=== PATIENT | female | born 1985 | race Caucasian/White ===

== ENCOUNTER 2017-12-27 10:05 | Emergency (ER) | payer OTHER ==
--- NOTE | 2017-12-27 12:56 | EDPHYS ---
Physician Documentation [facility] Name: Sydnie Villalta Age: 32 yrs Sex: Female : 1985 Arrival Date: 12/27/2017 Time: 10:10 Bed 23 Private MD: Flaco Castano E ED Physician Guicho Silva HPI: 12/27 17:05 This 32 yrs old Female presents to ER via Ambulatory with complaints of Fall kdr Injury. 17:05 Details of fall: The patient fell from an upright position, while standing. Onset: The kdr symptoms/episode began/occurred suddenly, yesterday. Associated injuries: The patient sustained injury to the head, injury to the low back, contusion. Severity of symptoms: At their worst the symptoms were mild, in the emergency department the symptoms are unchanged. The patient has not experienced similar symptoms in the past. The patient has not recently seen a physician. Tripped on drawer at work yesterday and now has pain to back of head and left low thorax and back. 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 - Social history:: Smoking status: Patient uses tobacco products, smokes one-half pack cigarettes per day. - Ebola Screening: : No symptoms or risks identified at this time. ROS: 18:23 Constitutional: Negative for fever, chills, and weight loss, Eyes: Negative for injury, kdr pain, redness, and discharge, ENT: Negative for injury, pain, and discharge, Neck: Negative for injury, pain, and swelling, Cardiovascular: Negative for anterior chest pain, palpitations, and edema - she does have some right lateral thorax pain Respiratory: Negative for shortness of breath, cough, wheezing, and pleuritic chest pain, Abdomen/GI: Negative for abdominal pain, nausea, vomiting, diarrhea, and constipation, Back: Negative for injury and pain, : Negative for injury, bleeding, discharge, and swelling, MS/Extremity: Negative for injury and deformity, Skin: Negative for injury, rash, and discoloration, Neuro: Negative for headache, weakness, numbness, tingling, and seizure activity - slight posterior head pain from fall Psych: Negative for depression, anxiety, suicide ideation, homicidal ideation, and hallucinations, Allergy/Immunology: Negative for hives, rash, and allergies, Endocrine: Negative for neck swelling, polydipsia, polyuria, polyphagia, and marked weight changes, Hematologic/Lymphatic: Negative for swollen nodes, abnormal bleeding, and unusual bruising. Exam: 18:23 Constitutional: This is a well developed, well nourished patient who is awake, alert, kdr and in no acute distress. Head/Face: Normocephalic, atraumatic. Eyes: Pupils equal round and reactive to light, extra-ocular motions intact. Lids and lashes normal. Conjunctiva and sclera are non-icteric and not injected. Cornea within normal limits. Periorbital areas with no swelling, redness, or edema. Neck: Trachea midline, no thyromegaly or masses palpated, and no cervical lymphadenopathy. Supple, full range of motion without nuchal rigidity, or vertebral point tenderness. No Meningismus. Chest/axilla: Normal chest wall appearance and motion. Nontender with no deformity. No lesions are appreciated. Cardiovascular: Regular rate and rhythm with a normal S1 and S2. No gallops, murmurs, or rubs. Normal PMI, no JVD. No pulse deficits. Respiratory: Lungs have equal breath sounds bilaterally, clear to auscultation and percussion. No rales, rhonchi or wheezes noted. No increased work of breathing, no retractions or nasal flaring. Abdomen/GI: Soft, non-tender, with normal bowel sounds. No distension or tympany. No guarding or rebound. No evidence of tenderness throughout. Back: No spinal tenderness. No costovertebral tenderness. Full range of motion. Skin: Warm, dry with normal turgor. Normal color with no rashes, no lesions, and no evidence of cellulitis. MS/ Extremity: Pulses equal, no cyanosis. Neurovascular intact. Full, normal range of motion. Neuro: Awake and alert, GCS 15, oriented to person, place, time, and situation. Cranial nerves II-XII grossly intact. Motor strength 5/5 in all extremities. Sensory grossly intact. Cerebellar exam normal. Normal gait. Psych: Awake, alert, with orientation to person, place and time. Behavior, mood, and affect are within normal limits. Vital Signs: 10:38 BP 129 / 90; Pulse 91; Resp 16; Temp 97.4; Pulse Ox 97% on R/A; Weight 87.54 kg; Height aj 5 ft. 1 in. (154.94 cm); Pain 5/10; 10:38 Body Mass Index 36.47 (87.54 kg, 154.94 cm) aj [place] Coma Score: 10:38 Eye Response: spontaneous(4). Verbal Response: oriented(5). Motor Response: obeys aj commands(6). Total: 15. Trauma Score (Adult): 10:38 Eye Response: spontaneous(1); Verbal Response: oriented(1); Motor Response: obeys aj commands(2); Systolic BP: > 89 mm Hg(4); Respiratory Rate: 10 to 29 per min(4); [place] Score: 15; Trauma Score: 12 MDM: 12:55 Patient medically screened. kdr 18:23 Data reviewed: vital signs, nurses notes. Counseling: I had a detailed discussion with kdr the patient and/or guardian regarding: the historical points, exam findings, and any diagnostic results supporting the discharge/admit diagnosis, the need for outpatient follow up. Administered Medications: No medications were administered Disposition: 12/27/17 12:55 Discharged to Home. Impression: Other slipping, tripping and stumbling and falls, Superficial injury of head, Chest pain, unspecified. - Condition is Stable. - Discharge Instructions: Chest Contusion, Chest Wall Pain, [id number], Head Injury, Adult, [id number]. - Prescriptions for Ibuprofen 800 mg Oral Tablet - take 1 tablet by ORAL route every 8-12 hours As needed take with food; 20 tablet. - Medication Reconciliation Form, Thank You Letter form. - Work release form (12/27/17 13:16). bd - Follow up: Flaco Castano MD; When: 2 - 3 days; Reason: If symptoms return, Further diagnostic work-up, Recheck today's complaints, Continuance of care, Re-evaluation by your physician. - Problem is new. - Symptoms are unchanged. Signatures: Jany Díaz, RN RN dmAlicia Montalvo RN RN Guicho Santos MD MD kdr Calderon, Audri, RN RN aa5 Imani Renee Corrections: (The following items were deleted from the chart) 13:00 12:55 12/27/2017 12:55 Discharged to Home. Impression: Other slipping, tripping and dm5 stumbling and falls; Superficial injury of head; Chest pain, unspecified. Condition is Stable. Forms are Medication Reconciliation Form, Thank You Letter, Antibiotic Education, Prescription Opioid Use. Follow up: Flaco Castano; When: 2 - 3 days; Reason: If symptoms return, Further diagnostic work-up, Recheck today's complaints, Continuance of care, Re-evaluation by your physician. Problem is new. Symptoms are unchanged. kdr
--- NOTE | 2017-12-27 12:56 | ER ---
Nurse's Notes [facility] Name: Sydnie Villalta Age: 32 yrs Sex: Female : 1985 Arrival Date: 12/27/2017 Time: 10:10 Bed 23 Private MD: Flaco Castano E Diagnosis: Other slipping, tripping and stumbling and falls;Superficial injury of head;Chest pain, unspecified Presentation: 12/27 10:38 Presenting complaint: Patient states: Tripped over drawer at work yesterday. Reports aj falling onto right side. Hitting right arm and right head on floor. Patient reports headache. Denies LOC. Care prior to arrival: None. Mechanism of Injury: Fall from standing position. Trauma event details: Injury occurred in the [facility], Injury occurred: in a public building. Injury occurred: December 26, 2017. 10:38 Acuity: SUZY 4 aj 10:38 Method Of Arrival: Ambulatory aj 12:00 Transition of care: patient was not received from another setting of care. Onset of aa5 symptoms was December 26, 2017. Risk Assessment: Do you want to hurt yourself or someone else? Patient reports no desire to harm self or others. Initial Sepsis Screen: Does the patient meet any 2 criteria? No. Patient's initial sepsis screen is negative. Does the patient have a suspected source of infection? No. Patient's initial sepsis screen is negative. 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 - Social history:: Smoking status: Patient uses tobacco products, smokes one-half pack cigarettes per day. - Ebola Screening: : No symptoms or risks identified at this time. Screenin:00 Abuse screen: Denies threats or abuse. Nutritional screening: No deficits noted. aa5 Tuberculosis screening: No symptoms or risk factors identified. Fall Risk None identified. Primary Survey: 10:38 A: Airway: patent. Breathing/Chest: Respiratory pattern: regular, Respiratory effort: aj spontaneous, unlabored. Circulation: Skin color: pink. Disability Alert. Assessment: 10:38 General: Appears in no apparent distress. comfortable, Behavior is calm, cooperative, aj appropriate for age. Pain: Complains of pain in face. Neuro: Level of Consciousness is awake, alert, obeys commands, Oriented to person, place, time, situation, Appropriate for age Gait is steady, Reports headache. Respiratory: Airway is patent Respiratory effort is even, unlabored, Respiratory pattern is regular, symmetrical. Derm: Skin is intact, is healthy with good turgor, Skin is pink, warm \T\ dry. normal. Musculoskeletal: Reports pain in right temporal area, right confucianist and right arm. 12:00 General: Appears comfortable, Behavior is calm, cooperative. Pain: Complains of pain in aa5 right confucianist and right hip Pain currently is 5 out of 10 on a pain scale. Quality of pain is described as aching, sore Is continuous, Aggravated by increased activity. Neuro: Level of Consciousness is awake, alert, obeys commands, Oriented to person, place, time, situation, Business Process Analyst are equal bilaterally Moves all extremities. Gait is steady, Speech is normal, Facial symmetry appears normal, Pupils are PERRLA, Denies weakness dizziness. Cardiovascular: Heart tones S1 S2 present Rhythm is regular. Respiratory: Airway is patent Respiratory effort is even, unlabored, Respiratory pattern is regular, symmetrical, Breath sounds are clear bilaterally. GI: No signs and/or symptoms were reported involving the gastrointestinal system. : No signs and/or symptoms were reported regarding the genitourinary system. EENT: No signs and/or symptoms were reported regarding the EENT system. Derm: Skin is pink, warm \T\ dry. Musculoskeletal: Range of motion: intact in all extremities. 12:59 Reassessment: Patient is alert, oriented x 3, equal unlabored respirations, skin aa5 warm/dry/pink. Vital Signs: 10:38 BP 129 / 90; Pulse 91; Resp 16; Temp 97.4; Pulse Ox 97% on R/A; Weight 87.54 kg; Height aj 5 ft. 1 in. (154.94 cm); Pain 5/10; 10:38 Body Mass Index 36.47 (87.54 kg, 154.94 cm) aj [place] Coma Score: 10:38 Eye Response: spontaneous(4). Verbal Response: oriented(5). Motor Response: obeys aj commands(6). Total: 15. Trauma Score (Adult): 10:38 Eye Response: spontaneous(1); Verbal Response: oriented(1); Motor Response: obeys aj commands(2); Systolic BP: > 89 mm Hg(4); Respiratory Rate: 10 to 29 per min(4); [place] Score: 15; Trauma Score: 12 ED Course: 10:10 Patient arrived in ED. mr 10:10 Flaco Castano MD is Private Physician. mr 10:18 Guicho Silva MD is Attending Physician. kdr 10:39 Triage completed. aj 10:42 Arm band placed on right wrist. Patient placed in waiting room, Patient notified of aj wait time. 11:49 Luisana Hampton, ESTEBAN is Primary Nurse. aa5 12:00 Patient has correct armband on for positive identification. Bed in low position. Call aa5 light in reach. Side rails up X2. 12:30 No provider procedures requiring assistance completed. aa5 12:54 Flaco Castano MD is Referral Physician. kdr 12:59 Patient did not have IV access during this emergency room visit. aa5 Administered Medications: No medications were administered Outcome: 12:55 Discharge ordered by MD. kdr 12:59 Discharged to home ambulatory. aa5 12:59 Condition: good 12:59 Discharge instructions given to patient, Instructed on discharge instructions, follow up and referral plans. medication usage, Demonstrated understanding of instructions, follow-up care, medications, Prescriptions given X 1. 13:00 Patient left the ED. dm5 Signatures: Jany Díaz RN RN dm5 Alicia Smith RN RN aj Rittger, Kevin, MD MD kdr Rivera, Maria mr Luisana Hampton RN RN aa5 Corrections: (The following items were deleted from the chart) 12:56 12:00 Pain: Complains of pain in right confucianist and right hip Quality of pain is aa5 described as aching, sore Is continuous, Aggravated by increased activity, aa5
[2017-12-27 13:13] VITALS: BP 129/90; TEMP 97.4; O2SAT 97
== END 2017-12-27 13:00 | disposition home or self-care (01) ==
LOC: ER 10:05
DX: S00.90XA Unspecified superficial injury of unspecified part of head, initial encounter (principal); R07.9 Chest pain, unspecified; F32.9 Major depressive disorder, single episode, unspecified; W01.0XXA Fall on same level from slipping, tripping and stumbling without subsequent striking against object, initial encounter; Y93.89 Activity, other specified; Y92.89 Other specified places as the place of occurrence of the external cause; Y99.0 Civilian activity done for income or pay
CPT/HCPCS: 99282

== ENCOUNTER 2020-10-30 02:07 | Emergency (ER) | payer OTHER, SELFPAY ==
--- OUTSIDE RECORDS SUMMARY | 2020-10-30 02:11 | XMS REPORT | Continuity of Care Document ---
:1985 Author Organization [facility] t Address [address] [place] [address] Care Team Providers Name Role Phone Yahir Castano MD Primary Care Physician MICHELLE Attending Clinician Unavailable Lab, Fam Pob I Attending Clinician Unavailable LIANA Attending Clinician Unavailable KALPANA FLOWER Attending Clinician Unavailable KALPANA FLOWER Admitting Clinician Unavailable Problems Condition Condition Condition Status Onset Resolution Last Treating Co mments Source Name Details Category Date Date Treatment Clinician Date Bladder Bladder Disease [facility] 00 [place] Bladder Bladder Disease Active [facility] Allergies, Adverse Reactions, Alerts Allergy Allergy Status Severity Reaction(s) Onset Inactive Treating Comm ents Source Name Type Date Date Clinician Aspirin Propensi Active Dizziness [facility] adverse [facility]: reports Medical reaction 00 that she Center s has taken Ibuprofen and naproxen in the past without any issues. Clams Drug [facility]axis [facility] [place] Latex Drug [facility]aphylaxis [facility] [place] Social History Social Habit Start Date Stop Date Quantity Comments Source Sex Assigned At [facility] Alcohol intake 2018-02-13 2018-02-13 [facility]00 of alcohol [facility] (finding) Cigarettes smoked 2018-02-13 2018-02-[address] [facility] - current (pack per 00:00:00 00:00:00 [facility] day) - Reported Cigarette 2018-02-13 2018-02-[address] [facility] - pack-years 00:00:00 00:00:00 [facility] Tobacco use and 2018-02-13 2018-02-[address] [facility] - exposure 00:00:00 00:00:00 [facility] Alcohol Comment 2018-02-12 2018-02-[address] [facility] - 00:00:00 00:00:00 [facility] Smoking Status Start Date Stop Date Source Current every day smoker 2018-02-13 00:00:00 [facility] Medications Ordered Filled Start Stop Current Ordering Indication Dosage Frequency Signature Comments Components Source Medication Medication Date Date Medication? Clinician (SIG) Name Name venlafaxine 2018- Yes 150mg Q.5D Take [address] (EFFEXOR) 7-13 mg by [facility] - 75 MG 11:39: mouth 2 Medical tablet 08 (two) Center times daily. brexpiprazo 2017- Yes 2mg QD Take [address] le 7-13 by mouth [facility] - (REXULTI) 1 11:39: daily. Medi yolanda mg Tab 08 Center tablet traMADol Yes 50mg Take [address] (ULTRAM) 50 7-13 by mouth [facility] - mg tablet 11:39: every 6 Medic al 08 (six) Center hours as needed for Pain. ciprofloxac 2018-0 Yes 500mg Q.5D Take [address] in HCl 7-13 mg by [facility] - (CIPRO) 500 11:39: mouth 2 Med ical MG tablet 08 (two) Center times daily. oxybutynin 2018-0 Yes 5mg [id number] Take [address] (DITROPAN) 7-13 [id number] by mouth 3 [facility] - 5 MG tablet 11:39: 3D (three) Med ical 08 times Center daily. Procedures This patient has no known procedures. Plan of Care Planned Activity Planned Date Details Comments Source Future Scheduled 2020-04-06 INFLUENZA VACCINE (#1) [facility] Test 00:00:00 [code = INFLUENZA Medical Ce nter VACCINE (#1)] Future Scheduled [address] [facility] [facility] - Test 00:00:00 malignant neoplasm of Medica l Center cervix (procedure) [code = 927362249] Future Scheduled [address] [facility] - Test 00:00:00 (procedure) [code = Medical Center [id number]] Future Scheduled [address] [facility] - Test 00:00:00 0-64 YRS (1 of 1 - Medical C enter PPSV23) [code = PNEUMOCOCCAL VACCINE 0-64 YRS (1 of 1 - PPSV23)] Encounters Start End Encounter Admission Attending Care Care Encounter Source Date/Time Date/Time Type Type Clinicians Facility Department ID 2020-07-20 2020-07-20 Outpatient MICHELLE [facility] [id number] [place] 00:00:00 00:00:00 [facility] [address] 2020-04-17 2020-04-17 Laboratory Lab, [facility] [id number] 18:13:57 18:27:15 Only Fam [facility] Health [id number] [place] [id number] Professio [id number] [address]al [address] 2020-03-24 2020-03-24 Outpatient LIANA [facility] [id number] [place] 00:00:00 00:00:00 EFRAIN [address] 2019-12-23 2019-12-23 Outpatient MICHELLE [facility] [id number] [place] 00:00:00 00:00:[address] [facility] Results Test Description Test Time Test Comments Results Result Sourc e Comments SCR MAMM BILATERAL 2019-01-17 - SCR MAMM BILATERAL VINCE CAD DIGITAL 12:55:25 VINCE CAD DIGITALBILATERAL FIRST EVER DIGITAL SCREENING MAMMOGRAM 3D/2D WITH CAD: 01/14/2019CLINICAL: Asymptomatic. Digital breast tomosynthesis was performed in addition to routine CC and MLO views. Current mammographic images were evaluated by either a Infinite.ly M-Vu or a Acousticeye ImageChecker CAD (computer aided detection system). No prior exams were available for comparison. There are scattered fibroglandular tissues in both breasts. No suspicious mass, architectural distortion, malignant type calcification, or lymph node abnormality detected. IMPRESSION: NEGATIVEThere is no mammographic evidence of malignancy. Resume annual screening mammography in one year. Vivian sosa/annemarie:01/17/2019 12:55:25 Fur Dressing Supervisor: Ana Saunders MM, [facility] Mammographyletter sent: BIRADS 1-2 Normal Mammogram BI-RADS: 1 Negative BASIC METABOLIC PANEL 2018-02-15 09:00:00 Test Item Value Reference Range Interpretation Comme nts SODIUM (BEAKER) (test code 136 meq/L 136-145 = 381) POTASSIUM (BEAKER) (test 4.5 meq/L 3.5-5.1 Spe cimen slightly code = 379) hemolyzed CHLORIDE (BEAKER) (test 109 meq/L 98-107 H code = 382) CO2 (BEAKER) (test code = 19 meq/L 22-29 L 355) BLOOD UREA NITROGEN 6 mg/dL 7-21 L (BEAKER) (test code = 354) CREATININE (BEAKER) (test 0.77 mg/dL 0.57-1.25 Sp ecimen slightly code = 358) hemolyzed GLUCOSE RANDOM (BEAKER) 104 mg/dL 70-105 (test code = 652) CALCIUM (BEAKER) (test code 8.9 mg/dL 8.4-10.2 = 697) EGFR (BEAKER) (test code = 86 mL/min/1.73 sq m ESTIMATED GFR IS NOT 1092) ACCURATE CRE ATININE CLEARANCE IN MD EDICTING GLOMERULAR FILT RATION RATE. ESTIMATED GFR IS NOT APPLICABLE FOR DIALYSIS PATIENTS. CBC W/PLT COUNT & AUTO [id number] 08:14:00 Test Item Value Reference Range Interpretation Comments WHITE BLOOD CELL COUNT (BEAKER) 10.8 K/ L 3.5-10.5 H (test code = 775) RED BLOOD CELL COUNT (BEAKER) 3.74 M/ L 3.93-5.22 L (test code = 761) HEMOGLOBIN (BEAKER) (test code = 11.2 GM/DL 11.2-15.7 410) HEMATOCRIT (BEAKER) (test code = 34.0 % 34.1-44.9 L 411) MEAN CORPUSCULAR VOLUME (BEAKER) 90.9 fL 79.4-94.8 (test code = 753) MEAN CORPUSCULAR HEMOGLOBIN 29.9 pg 25.6-32.2 (BEAKER) (test code = 751) MEAN CORPUSCULAR HEMOGLOBIN CONC 32.9 GM/DL 32.2-35.5 (BEAKER) (test code = 752) RED CELL DISTRIBUTION WIDTH 14.8 % 11.7-14.4 H (BEAKER) (test code = 412) PLATELET COUNT (BEAKER) (test 213 K/CU MM 150-450 code = 756) MEAN PLATELET VOLUME (BEAKER) 11.0 fL 9.4-12.3 (test code = 754) NUCLEATED RED BLOOD CELLS 0 /100 WBC 0-0 (BEAKER) (test code = 413) NEUTROPHILS RELATIVE PERCENT 59 % (BEAKER) (test code = 429) LYMPHOCYTES RELATIVE PERCENT 27 % (BEAKER) (test code = 430) MONOCYTES RELATIVE PERCENT 9 % (BEAKER) (test code = 431) EOSINOPHILS RELATIVE PERCENT 4 % (BEAKER) (test code = 432) BASOPHILS RELATIVE PERCENT 1 % (BEAKER) (test code = 437) NEUTROPHILS ABSOLUTE COUNT 6.42 K/ L 1.56-6.13 H (BEAKER) (test code = 670) LYMPHOCYTES ABSOLUTE COUNT 2.88 K/ L 1.18-3.74 (BEAKER) (test code = 414) MONOCYTES ABSOLUTE COUNT (BEAKER) 1.00 K/ L 0.24-0.36 H (test code = 415) EOSINOPHILS ABSOLUTE COUNT 0.40 K/ L 0.04-0.36 H (BEAKER) (test code = 416) BASOPHILS ABSOLUTE COUNT (BEAKER) 0.07 K/ L 0.01-0.08 (test code = 417) IMMATURE GRANULOCYTES-RELATIVE 0 % 0-1 PERCENT (BEAKER) (test code = 2801) CBC W/PLT COUNT & AUTO [id number] 08:10:00 Test Item Value Reference Range Interpretation Comments WHITE BLOOD CELL COUNT (BEAKER) 17.1 K/ L 3.5-10.5 H (test code = 775) RED BLOOD CELL COUNT (BEAKER) 4.06 M/ L 3.93-5.22 (test code = 761) HEMOGLOBIN (BEAKER) (test code = 12.0 GM/DL 11.2-15.7 410) HEMATOCRIT (BEAKER) (test code = 38.2 % 34.1-44.9 411) MEAN CORPUSCULAR VOLUME (BEAKER) 94.1 fL 79.4-94.8 (test code = 753) MEAN CORPUSCULAR HEMOGLOBIN 29.6 pg 25.6-32.2 (BEAKER) (test code = 751) MEAN CORPUSCULAR HEMOGLOBIN CONC 31.4 GM/DL 32.2-35.5 L (BEAKER) (test code = 752) RED CELL DISTRIBUTION WIDTH 14.7 % 11.7-14.4 H (BEAKER) (test code = 412) PLATELET COUNT (BEAKER) (test 219 K/CU MM 150-450 code = 756) MEAN PLATELET VOLUME (BEAKER) 11.8 fL 9.4-12.3 (test code = 754) NUCLEATED RED BLOOD CELLS 0 /100 WBC 0-0 (BEAKER) (test code = 413) (CELLAVISION MANUAL DIFF)2018-02-14 08:10:00 Test Item Value Reference Range Interpretation Comments NEUTROPHILS - REL 79 % (CELLAVISION)(BEAKER) (test code = 2816) LYMPHOCYTES - REL 13 % (CELLAVISION)(BEAKER) (test code = 2817) MONOCYTES - REL 6 % (CELLAVISION)(BEAKER) (test code = 2818) EOSINOPHILS - REL 1 % (CELLAVISION)(BEAKER) (test code = 2819) BASOPHILS - REL 1 % (CELLAVISION)(BEAKER) (test code = 2820) NEUTROPHILS - ABS 13.51 K/ul 1.56-6.13 H (CELLAVISION)(BEAKER) (test code = 2830) LYMPHOCYTES - ABS 2.22 K/ul 1.18-3.74 (CELLAVISION)(BEAKER) (test code = 2831) MONOCYTES - ABS 1.03 K/uL 0.24-0.36 H (CELLAVISION)(BEAKER) (test code = 2832) EOSINOPHILS - ABS 0.17 K/uL 0.04-0.36 (CELLAVISION)(BEAKER) (test code = 2834) BASOPHILS - ABS 0.17 K/uL 0.01-0.08 H (CELLAVISION)(BEAKER) (test code = 2835) TOTAL COUNTED (BEAKER) (test code 100 = 1351) RBC MORPHOLOGY (BEAKER) (test code Normal = 762) WBC MORPHOLOGY (BEAKER) (test code Normal = 487) PLT MORPHOLOGY (BEAKER) (test code Normal = 486) ARTIFACT (CELLAVISION)(BEAKER) Present (test code = 3432) PLATELET CONCENTRATION Adequate (CELLAVISION)(BEAKER) (test code = 3438) Received comment: User comments: Slide comments:BASIC METABOLIC [id number] 07:24:00 Test Item Value Reference Range Interpretation Comments SODIUM (BEAKER) 134 meq/L 136-145 L (test code = 381) POTASSIUM (BEAKER) 4.1 meq/L 3.5-5.1 Specimen slightly (test code = 379) hemolyzed CHLORIDE (BEAKER) 109 meq/L 98-107 H (test code = 382) CO2 (BEAKER) (test 18 meq/L 22-29 L code = 355) BLOOD UREA NITROGEN 4 mg/dL 7-21 L (BEAKER) (test code = 354) CREATININE (BEAKER) 0.73 mg/dL 0.57-1.25 Specimen slightly (test code = 358) hemolyzed GLUCOSE RANDOM 122 mg/dL 70-105 H (BEAKER) (test code = 652) CALCIUM (BEAKER) 8.9 mg/dL 8.4-10.2 (test code = 697) EGFR (BEAKER) (test 91 mL/min/1.73 ESTIMA PETRA GFR IS code = 1092) sq m NOT ACCURATE CREATININE CLEARANCE IN PREDICTING GLOMERULAR FILTRATION RATE . ESTIMATED GFR I S NOT APPLICABLE FOR DIALYSIS PATIEN TS. SCREEN, [id number] 16:42:00 Test Item Value Reference Range Interpretation Comments TEST URINE (BEAKER) (test Negative code = 583) [id number] 15:36:00 Test Item Value Reference Range Interpretation Comments SODIUM (BEAKER) (test 137 meq/L 136-145 code = 381) POTASSIUM (BEAKER) 4.4 meq/L 3.5-5.1 Specimen slightly (test code = 379) hemolyzed CHLORIDE (BEAKER) 107 meq/L 98-107 (test code = 382) CO2 (BEAKER) (test 23 meq/L 22-29 code = 355) BUN AND [id number] 15:36:00 Test Item Value Reference Range Interpretation Comments BLOOD UREA NITROGEN 6 mg/dL 7-21 L (BEAKER) (test code = 354) CREATININE (BEAKER) 0.78 mg/dL 0.57-1.25 Specimen slightly (test code = 358) hemolyzed EGFR (BEAKER) (test 85 mL/min/1.73 ESTIMA PETRA GFR IS code = 1092) sq m NOT ACCURATE CREATININE CLEARANCE IN PREDICTING GLOMERULAR FILTRATION RATE . ESTIMATED GFR I S NOT APPLICABLE FOR DIALYSIS PATIEN TS. [id number] 15:13:00 Test Item Value Reference Range Interpretation Comments HEMOGLOBIN (BEAKER) (test code = 13.6 GM/DL 11.2-15.7 410)
[2020-10-30 02:59] LABS: Absolute Lymphocytes (CBC) 3.4 K/uL (0.7-4.9); Basophils % 0.2 % (0-1.3); Hematocrit 45.1 % (36.0-45.0); Lymphocytes % 32.7 % (15.3-44.8); MPV 9.8 fL (7.6-11.3); Protime INR 0.82; RBC Red Blood Cell Count 4.86 M/uL (3.86-4.86)
[2020-10-30 03:39] LABS: ALT/SGPT 30 U/L (12-78); AST/SGOT 18 U/L (15-37); Albumin 3.7 g/dL (3.4-5.0); Alkaline Phosphatase 73 U/L (45-117); BUN Blood Urea Nitrogen 6 mg/dL (7-18); Bicarbonate 23 mmol/L (21-32); Bilirubin Direct < 0.1 mg/dL (0-0.2); Bilirubin Total 0.5 mg/dL (0.2-1.0); Glucose Level 99 mg/dL (74-106); Magnesium 2.1 mg/dL (1.8-2.4); NT PRO-BNP 11 pg/mL (<125); Protein, Total 7.8 g/dL (6.4-8.2); Sodium Level 139 mmol/L (136-145); Troponin (Emerg Dept Use Only) < 0.02 ng/mL (0.0-0.045)
--- NOTE | 2020-10-30 03:47 | EDPHYS ---
Physician Documentation [facility] Name: Sydnie Villalta Age: 35 yrs Sex: Female : 1985 Arrival Date: 10/30/2020 Time: 02:10 Bed 8 Private MD: ED Physician Peri Chahal HPI: 10/30 02:37 This 35 yrs old Female presents to ER via Ambulatory with complaints of ma2 Weakness, Numbness Of Arm. 02:37 Onset: The symptoms/episode began/occurred gradually, 1 month(s) ago. Associated signs ma2 and symptoms: Pertinent negatives: dizziness, headache, neck stiffness, paresthesias, seizure, visual field changes, weakness. Severity of symptoms: At their worst the symptoms were very mild in the emergency department the symptoms have resolved. The patient has experienced similar episodes in the past. chest pain that is stapping on breathing, worse when she takes deep breath, no pain at this itme . 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 - Social history:: Smoking status: Patient reports the use of cigarette tobacco products, smokes one pack cigarettes per day. Patient/guardian denies using alcohol, street drugs, The patient lives with family. - Family history:: not pertinent. ROS: 02:37 Constitutional: Negative for fever, chills, and weight loss. ma2 02:37 All other systems are negative. Exam: 02:37 Constitutional: This is a well developed, well nourished patient who is awake, alert, ma2 and in no acute distress. Chest/axilla: Normal chest wall appearance and motion. Nontender with no deformity. No lesions are appreciated. Cardiovascular: Regular rate and rhythm with a normal S1 and S2. No gallops, murmurs, or rubs. Normal PMI, no JVD. No pulse deficits. Respiratory: Lungs have equal breath sounds bilaterally, clear to auscultation and percussion. No rales, rhonchi or wheezes noted. No increased work of breathing, no retractions or nasal flaring. Abdomen/GI: Soft, non-tender, with normal bowel sounds. No distension or tympany. No guarding or rebound. No evidence of tenderness throughout. Back: No spinal tenderness. No costovertebral tenderness. Full range of motion. Skin: Warm, dry with normal turgor. Normal color with no rashes, no lesions, and no evidence of cellulitis. MS/ Extremity: Pulses equal, no cyanosis. Neurovascular intact. Full, normal range of motion. Neuro: Awake and alert, GCS 15, oriented to person, place, time, and situation. Cranial nerves II-XII grossly intact. Motor strength 5/5 in all extremities. Sensory grossly intact. Cerebellar exam normal. Normal gait. 03:46 Respiratory: chest pain is reproducible on exam . [facility] Vital Signs: 02:21 BP 133 / 87; Pulse 88; Resp 15; Temp 98.9; Pulse Ox 100% ; Weight 87.45 kg; Pain 3/10; rv 03:00 BP 121 / 76; Pulse 86; Resp 16; Pulse Ox 100% on R/A; rv 03:58 BP 116 / 79; Pulse 84; Resp 17; Pulse Ox 99% on R/A; rv NIH Stroke Scale Scores: 02:30 NIHSS Score: 0 rv MDM: 02:19 Patient medically screened. nc2 02:37 Data reviewed: vital signs, nurses notes. [facility] 03:46 Counseling: I had a detailed discussion with the patient and/or guardian regarding: the [facility] historical points, exam findings, and any diagnostic results supporting the discharge/admit diagnosis, the presence of at least one elevated blood pressure reading (>120/80) during this emergency department visit. Response to treatment: the patient's symptoms have markedly improved after treatment. 10/30 02:32 Order name: Basic Metabolic Panel [facility] 10/30 02:32 Order name: CBC with Diff; Complete Time: 03:07 [facility] 10/30 02:32 Order name: LFT's [facility] 10/30 02:32 Order name: Magnesium; Complete Time: 03:47 [facility] 10/30 02:32 Order name: NT PRO-BNP; Complete Time: 03:47 [facility] 10/30 02:32 Order name: PT-INR; Complete Time: 03:07 [facility] 10/30 02:32 Order name: Troponin (emerg Dept Use Only); Complete Time: 03:47 ma2 10/30 02:32 Order name: XRAY Chest (1 view) ma2 10/30 02:32 Order name: EKG; Complete Time: 02:33 ma2 10/30 02:32 Order name: Cardiac monitoring; Complete Time: 02:33 ma2 10/30 02:32 Order name: EKG - Nurse/Tech; Complete Time: 02:33 ma2 10/30 02:32 Order name: Basic Metabolic Panel; Complete Time: 03:47 EDMS 10/30 02:33 Order name: Liver (Hepatic) Function; Complete Time: 03:47 EDMS 10/30 02:44 Order name: Glucose, Ancillary Testing; Complete Time: 03:07 EDMS 10/30 02:32 Order name: IV Saline Lock; Complete Time: 02:33 ma2 10/30 02:32 Order name: Labs collected and sent; Complete Time: 02:33 ma2 10/30 02:32 Order name: O2 Per Protocol; Complete Time: 02:33 ma2 10/30 02:32 Order name: O2 Sat Monitoring; Complete Time: 02:33 ma2 Administered Medications: No medications were administered Disposition: 10/30/20 03:46 Discharged to Home. Impression: Chest pain on breathing. - Condition is Stable. - Discharge Instructions: Chest Wall Pain. - Prescriptions for Diclofenac Sodium 75 mg Oral Tablet Sustained Release - take 1 tablet by ORAL route 2 times per day; 30 tablet. - Medication Reconciliation Form, Thank You Letter, Antibiotic Education, Prescription Opioid Use form. - Follow up: Private Physician; When: Tomorrow; Reason: Continuance of care. NIH Stroke Scale - NIH Stroke Score Date: 10/30/2020 Time: 02:30 Total Score = 0 1a. Level of Consciousness (LOC) - 0(Alert) 1b. Level of Consciousness (LOC) (Year \T\ Age) - 0(Both) 1c. LOC Commands (Open \T\ Closes Eyes/3D Modeler) - 0(Both) 2. Best Gaze (Lateral Gaze Paresis) - 0(Normal) 3. Visual Field Loss - 0(No visual loss) 4. Facial Palsy - 0(Normal) 5a. Left Arm: Motor (10-second hold) - 0(No drift) 5b. Right Arm: Motor (10-second hold) - 0(No drift) 6a. Left Leg: Motor (5-second hold - always test supine) - 0(No drift) 6b. Right Leg: Motor (5-second hold - always test supine) - 0(No drift) 7. Limb Ataxia (finger/nose \T\ heel/[place] - test with eyes open) - 0(Absent) 8. Sensory Loss (pinprick arms/legs/face) - 0(Normal) 9. Best Language: Aphasia (description/naming/reading) - 0(No aphasia) 10. Dysarthria (speech clarity - read or repeat words) - 0(Normal) 11. Extinction and Inattention (visual/tactile/auditory/spatial/personal) - 0(No abnormality) Initials: rv Signatures: Dispatcher [employer] EDMS Peri Chahal MD MD ma2 Andrea Blanc RN RN rv Corrections: (The following items were deleted from the chart) 03:58 03:46 10/30/2020 03:46 Discharged to Home. Impression: Chest pain on breathing. rv Condition is Stable. Prescriptions for Diclofenac Sodium 75 mg Oral Tablet Sustained Release - take 1 tablet by ORAL route 2 times per day; 30 tablet. and Forms are Medication Reconciliation Form, Thank You Letter, Antibiotic Education, Prescription Opioid Use. Follow up: Private Physician; When: Tomorrow; Reason: Continuance of care. ma2
--- NOTE | 2020-10-30 03:47 | ER ---
Nurse's Notes [facility] [place] Name: Sydnie Villalta Age: 35 yrs Sex: Female : 1985 Arrival Date: 10/30/2020 Time: 02:10 Bed 8 Private MD: Diagnosis: Chest pain on breathing Presentation: 10/30 02:21 Chief complaint: Patient states: NUMBNESS OF LEFT ARM FOR 3-4 DAYS, LEFT LEG STARTING rv ALLEN NUMB TODAY, COMPLAINING OF MILD CHEST PAIN 3/10, HEAVINESS, WITH MILD SOB. Coronavirus screen: Client denies travel out of the [place] in the last 14 days. Ebola Screen: No symptoms or risks identified at this time. No acute neurological deficit is noted. Pre-hospital glucose is not applicable to this patient. Initial Sepsis Screen: Does the patient meet any 2 criteria? No. Patient's initial sepsis screen is negative. Does the patient have a suspected source of infection? No. Patient's initial sepsis screen is negative. Risk Assessment: Do you want to hurt yourself or someone else? Patient reports no desire to harm self or others. Onset of symptoms was October 26, 2020. 02:21 Method Of Arrival: Ambulatory rv 02:21 Acuity: SUZY 3 rv Triage Assessment: : The onset of the patients symptoms was October 26, 2020 at 08:00. General: Appears rv comfortable, Behavior is calm, cooperative. Pain: Complains of pain in chest Pain currently is 3 out of 10 on a pain scale. Quality of pain is described as heavy, Pain began 1 day ago. EENT: No signs and/or symptoms were reported regarding the EENT system. Neuro: Level of Consciousness is awake, alert, obeys commands, Oriented to person, place, time, situation, Activity Assistant are equal bilaterally Moves all extremities. Full function Gait is steady, Speech is normal, Facial symmetry appears normal, Reports numbness in left arm and left leg. Cardiovascular: Patient's skin is warm and dry. Respiratory: Airway is patent Respiratory effort is even, unlabored. Derm: Skin is intact. SAUTE CHEF: : LMP 10/09/2020 rv Stroke Activation: Symptom onset > 6 hours Physician: Stroke Attending; Name: ; Notified At: ; Arrived At: Physician: Chief Stroke Resident; Name: ; Notified At: ; Arrived At: Physician: Stroke Resident; Name: ; Notified At: ; Arrived At: Physician: ED Attending; Name: ; Notified At: ; Arrived At: Physician: ED Resident; Name: ; Notified At: ; Arrived At: Historical: - Allergies: 02:27 Latex, Natural Rubber; rv 02:27 Aspirin; rv - PMHx: 02:27 Depression; Anxiety; rv - PSHx: 02:27 Appendectomy; rv - Immunization history:: Adult Immunizations not up to date. - Social history:: Smoking status: Patient reports the use of cigarette tobacco products, smokes one pack cigarettes per day. Patient/guardian denies using alcohol, street drugs, The patient lives with family. - Family history:: not pertinent. Screenin:30 Abuse screen: Denies threats or abuse. Denies injuries from another. Nutritional rv screening: No deficits noted. Tuberculosis screening: No symptoms or risk factors identified. Fall Risk None identified. Assessment: 02:30 VAN Scoring: Arm Drift: Patients demonstrates NO arm weakness. Patient is VAN Negative. rv The patient has not been NPO before screening. The patient is alert, and able to follow commands. The patient does not exhibit slurred or garbled speech. The patient is not exhibiting difficulty speaking. The patient is exhibiting difficulty understanding words. The patient is unable to swallow own secretions without drooling or the need for suction. Patient tolerated one teaspoon of water. No drooling, immediate coughing, gurgling, or clearing of the throat was noted. The patient tolerated 90mL of water. No drooling, immediate coughing, gurgling, or clearing of the throat was noted. The patient passed the bedside swallow screening. Oral medications may be given as ordered. Contact Physician for further diet orders. Provider notified of bedside swallow screening results: Peri Chahal MD. T-PA (Activase) Screening:. Vital Signs: 02:21 BP 133 / 87; Pulse 88; Resp 15; Temp 98.9; Pulse Ox 100% ; Weight 87.45 kg; Pain 3/10; rv 03:00 BP 121 / 76; Pulse 86; Resp 16; Pulse Ox 100% on R/A; rv 03:58 BP 116 / 79; Pulse 84; Resp 17; Pulse Ox 99% on R/A; rv NIH Stroke Scale Scores: 02:30 NIHSS Score: 0 rv ED Course: 02:10 Patient arrived in ED. cl3 02:15 Andrea Blanc, ESTEBAN is Primary Nurse. rv 02:19 Peri Chahal MD is Attending Physician. ma2 02:26 Triage completed. rv 02:30 Arm band placed on right wrist. Patient placed in the treatment room, on a stretcher, rv Patient notified of wait time. 02:31 Patient has correct armband on for positive identification. cardiac monitor technician on. Pulse rv ox on. NIBP on. 02:31 No provider procedures requiring assistance completed. Initial lab(s) drawn, by ED rv staff, sent to lab. Inserted saline lock: 22 gauge in right upper arm, using aseptic technique. Blood collected. BY PEMA ORELLANA. 03:11 XRAY Chest (1 view) In Process Unspecified. EDMS 03:58 IV discontinued, intact, bleeding controlled, No redness/swelling at site. Pressure rv dressing applied. Administered Medications: No medications were administered Outcome: 03:46 Discharge ordered by . ma2 03:58 Discharged to home ambulatory. rv 03:58 Condition: good 03:58 Discharge instructions given to patient, Instructed on discharge instructions, follow up and referral plans. medication usage, Demonstrated understanding of instructions, follow-up care, medications, Prescriptions given X 1. 03:58 Patient left the ED. rv NIH Stroke Scale - NIH Stroke Score Date: 10/30/2020 Time: 02:30 Total Score = 0 1a. Level of Consciousness (LOC) - 0(Alert) 1b. Level of Consciousness (LOC) (Year \T\ Age) - 0(Both) 1c. LOC Commands (Open \T\ Closes Eyes/Petroleum Refining Firer) - 0(Both) 2. Best Gaze (Lateral Gaze Paresis) - 0(Normal) 3. Visual Field Loss - 0(No visual loss) 4. Facial Palsy - 0(Normal) 5a. Left Arm: Motor (10-second hold) - 0(No drift) 5b. Right Arm: Motor (10-second hold) - 0(No drift) 6a. Left Leg: Motor (5-second hold - always test supine) - 0(No drift) 6b. Right Leg: Motor (5-second hold - always test supine) - 0(No drift) 7. Limb Ataxia (finger/nose \T\ heel/[place] - test with eyes open) - 0(Absent) 8. Sensory Loss (pinprick arms/legs/face) - 0(Normal) 9. Best Language: Aphasia (description/naming/reading) - 0(No aphasia) 10. Dysarthria (speech clarity - read or repeat words) - 0(Normal) 11. Extinction and Inattention (visual/tactile/auditory/spatial/personal) - 0(No abnormality) Initials: rv Signatures: Dispatcher [employer] EDPeri Stovall MD MD ma2 Andrea Blanc RN RN Edi Black cl3
--- NOTE | 2020-10-30 09:44 | RAD REPORT ---
EXAM DESCRIPTION: Inna Single View10/30/2020 3:12 am CLINICAL HISTORY: Chest pain COMPARISON: 2007 FINDINGS: The lungs appear clear of acute infiltrate. The heart is normal size IMPRESSION: No acute abnormalities displayed
--- NOTE | 2020-10-30 11:11 | EKG ---
Test Date: 2020-10-30 Test Time: 02:40:31 Clam Shovel Operator: RV MEASUREMENT RESULTS: Intervals: Rate: 81 AZ: 130 QRSD: 80 QT: 368 QTc: 427 [place]: P: 50 AZ: 130 QRS: 53 T: 49 INTERPRETIVE STATEMENTS: Normal sinus rhythm with sinus arrhythmia Normal ECG No previous ECG available for comparison Electronically Signed On 10-30-20 11:11:01 CDT by Vu Cuevas
[2020-10-30 20:38] VITALS: TEMP 98.9
[2020-10-30 20:41] VITALS: BP 116/79; O2SAT 99
== END 2020-10-30 03:58 | disposition home or self-care (01) ==
LOC: ER 02:07
DX: R07.1 Chest pain on breathing (principal); F17.210 Nicotine dependence, cigarettes, uncomplicated; Z88.6 Allergy status to analgesic agent; Z91.040 Latex allergy status; Z91.048 Other nonmedicinal substance allergy status
CPT/HCPCS: 36415; 71045; 80048; 80076; 82947; 83735; 83880; 84484; 85025; 85610; 93005; 99284

== ENCOUNTER 2020-11-19 20:03 | Emergency (ER) | payer SELFPAY ==
--- OUTSIDE RECORDS SUMMARY | 2020-11-19 20:06 | XMS REPORT | Continuity of Care Document ---
:1985 Author Organization [facility] t Address [address] [place] [address] Care Team Providers Name Role Phone Yahir [...] stones 02-13 [facility] 00 [place] Bladder Bladder Disease Active [facility] stone [...] Allergy 02-12 [facility] 00 [place] Latex Drug [facility]axis [facility] 00 [place] Social History Social Habit Start Date Stop Date Quantity Comments Source Sex Assigned At [facility] Alcohol intake 2018-02-13 2018-02-13 [facility]00 [facility] alcohol [facility] (finding) Cigarettes smoked 2018-02-13 2018-02-[address] [facility] - current (pack per 00:00:00 00:00:00 [facility] day) - Reported Cigarette 2018-02-13 2018-02-[address] [facility] - pack-years 00:00:00 00:00:00 [facility] Tobacco use and 2018-02-13 2018-02-[address] [facility] - exposure 00:00:00 00:00:00 [facility] Alcohol Comment 2018-02-12 2018-02-[address] [facility] - 00:00:00 00:00:00 [facility] Smoking Status Start Date Stop Date Source Current every day smoker 2018-02-13 00:00:00 [facility] Medications Ordered Filled Start Stop Current Ordering [...] Center times daily. oxybutynin 2018-0 Yes 5mg [id number] Take [address] [facility] (DITROPAN) 7-13 [id number] by mouth 3 [facility] - 5 MG [...] Medica l Center cervix (procedure) [code = 929059799] Future Scheduled [address] [facility] - Test 00:00:00 (procedure) [code = Medical Center 06880997] Future Scheduled [address] [facility] - Test 00:00:00 0-64 YRS (1 of 1 - Medical C enter PPSV23) [code = PNEUMOCOCCAL VACCINE 0-64 YRS (1 of 1 - PPSV23)] Encounters Start End Encounter Admission Attending Care Care Encounter Source Date/Time Date/Time Type Type Clinicians Facility Department ID 2020-07-20 2020-07-20 Outpatient [facility] [id number] 00:00:00 00:00:00 [facility] [address] 2020-04-17 2020-04-17 Laboratory Lab, [facility] [id number] 18:13:57 18:27:15 Only Fam [facility] [id number] [place] [id number] Professio [id number] [address] 2020-03-24 2020-03-24 Outpatient LIANA [facility] [id number] 00:00:00 00:00:00 EFRAIN [address] 2019-12-23 2019-12-23 Outpatient [facility]LE [facility] [id number] 00:00:00 00:00:[address] [facility] [address] [...] mammographic images were evaluated by either a [employer] M-Vu or a [employer] ImageChecker CAD (computer aided detection system). No prior exams were available for comparison. There are scattered fibroglandular tissues in both breasts. No suspicious mass, architectural distortion, malignant type calcification, or lymph node abnormality detected. IMPRESSION: NEGATIVEThere is no mammographic evidence of malignancy. Resume annual screening mammography in one year. Vivian sosa/annemarie:01/17/2019 12:55:25 [employer] [place] [employer]: Ana Saunders MM, [facility] Mammographyletter sent: BIRADS 1-2 Normal Mammogram BI-RADS: [...] NOT 1092) ACCURATE CRE ATININE CLEARANCE IN ME EDICTING GLOMERULAR FILT RATION RATE. ESTIMATED GFR IS NOT APPLICABLE FOR DIALYSIS PATIENTS. CBC W/PLT COUNT & AUTO [id number] 08:14:00 Test Item Value Reference Range Interpretation [...] = 2801) CBC W/PLT COUNT & AUTO [id number] 08:10:00 Test Item Value Reference Range Interpretation [...] Received comment: User comments: Slide comments:BASIC METABOLIC [id number] 07:24:00 Test Item Value Reference Range Interpretation [...] NOT APPLICABLE FOR DIALYSIS PATIEN TS. SCREEN, [id number] 16:42:00 Test Item Value Reference Range Interpretation Comments TEST URINE (BEAKER) (test Negative code = 583) [id number] 15:36:00 Test Item Value Reference Range Interpretation Comments SODIUM (BEAKER) (test 137 meq/L 136-145 code = 381) POTASSIUM (BEAKER) 4.4 meq/L 3.5-5.1 Specimen slightly (test code = 379) hemolyzed CHLORIDE (BEAKER) 107 meq/L 98-107 (test code = 382) CO2 (BEAKER) (test 23 meq/L 22-29 code = 355) BUN AND [id number] 15:36:00 Test Item Value Reference Range Interpretation [...] S NOT APPLICABLE FOR DIALYSIS PATIEN TS. [id number] 15:13:00 Test Item Value Reference Range Interpretation Comments HEMOGLOBIN (BEAKER) (test code = 13.6 GM/DL 11.2-15.7 410)
[2020-11-19 22:15] LABS: Absolute Lymphocytes (CBC) 2.2 K/uL (0.7-4.9); Basophils % 1.1 % (0-1.3); Hematocrit 41.6 % (36.0-45.0); Lymphocytes % 20.8 % (15.3-44.8); MPV 9.5 fL (7.6-11.3); RBC Red Blood Cell Count 4.54 M/uL (3.86-4.86)
[2020-11-19 22:38] LABS: ALT/SGPT 37 U/L (12-78); AST/SGOT 19 U/L (15-37); Albumin 3.6 g/dL (3.4-5.0); Alkaline Phosphatase 71 U/L (45-117); BUN Blood Urea Nitrogen 8 mg/dL (7-18); Bicarbonate 24 mmol/L (21-32); Bilirubin Direct 0.1 mg/dL (0-0.2); Bilirubin Total 0.5 mg/dL (0.2-1.0); Glucose Level 87 mg/dL (74-106); Lipase 135 U/L (73-393); Potassium 4.2 mmol/L (3.5-5.1); Protein, Total 7.5 g/dL (6.4-8.2); Sodium Level 138 mmol/L (136-145)
[2020-11-19 23:33] LABS: Urine Specific Gravity/Preg >1.030 (1.005-1.030)
[2020-11-20] MEDS ORDERED: ONDANSETRON 4 MG (ODT) TAB ONE (00:19)
--- NOTE | 2020-11-20 00:42 | EDPHYS ---
Physician Documentation [facility] Name: Sydnie Villalta Age: 35 yrs Sex: Female : 1985 Arrival Date: 11/19/2020 Time: 20:06 Bed 20 Private MD: ED Physician Giovany Marin HPI: 11/19 21:16 This 35 yrs old Female presents to ER via Ambulatory with complaints of m Abdominal Pain, Nausea/Vomiting/Diarrhea. 21:16 The patient presents with abdominal pain. Onset: The symptoms/episode began/occurred jmm gradually, 6 month(s) ago. The symptoms do not radiate. Associated signs and symptoms: Pertinent positives: diarrhea, vomiting. The symptoms are described as achy, crampy. Modifying factors: The symptoms are alleviated by nothing, the symptoms are aggravated by nothing. This is a 35 year old female with a history of anxiety, depression that presents to the ED with complaints of generalized abdominal cramping beginning approx 6 month ago with mucus like stool. Patient states having increased vomiting. . 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 - Social history:: Smoking status: Patient reports the use of cigarette tobacco products, smokes one pack cigarettes per day. ROS: 21:16 Constitutional: Negative for fever, chills, and weight loss, Cardiovascular: Negative jmm for chest pain, palpitations, and edema, Respiratory: Negative for shortness of breath, cough, wheezing, and pleuritic chest pain. 21:16 Abdomen/GI: Positive for abdominal pain. 21:16 All other systems are negative. Exam: 21:16 Constitutional: This is a well developed, well nourished patient who is awake, alert, jmm and in no acute distress. Head/Face: atraumatic. Eyes: EOMI, no conjunctival erythema appreciated ENT: Moist Mucus Membranes Neck: Trachea midline, Supple Chest/axilla: Normal chest wall appearance and motion. Cardiovascular: Regular rate and rhythm. No edema appreciated Respiratory: Normal respirations, no respiratory distress appreciated Abdomen/GI: Non distended, soft Back: Normal ROM Skin: General appearance color normal MS/ Extremity: Moves all extremities, no obvious deformities appreciated, no edema noted to the lower extremities Neuro: Awake and alert, normal gait Psych: Behavior is normal, Mood is normal, Patient is cooperative and pleasant Vital Signs: 20:17 BP 115 / 88; Pulse 103; Resp 18 S; Temp 97(TE); Pulse Ox 96% on R/A; Weight 90.72 kg ca1 (R); Height 5 ft. 1 in. (154.94 cm) (R); Pain 10/13; 11/20 00:30 BP 107 / 63; Pulse 90; Resp 18; Pulse Ox 98% ; ea 11/19 20:17 Body Mass Index 37.79 (90.72 kg, 154.94 cm) ca1 MDM: 11/19 21:16 Patient medically screened. [facility] 11/20 00:38 Data reviewed: vital signs, nurses notes. Counseling: I had a detailed discussion with [facility] the patient and/or guardian regarding: the historical points, exam findings, and any diagnostic results supporting the discharge/admit diagnosis, lab results, radiology results, the need for outpatient follow up, to return to the emergency department if symptoms worsen or persist or if there are any questions or concerns that arise at home. ED course: Patient is alert and non toxic in appearance in the ED. No signs of resp distress. CT negative. I discussed labs and ct with the patient. patient is advised to follow up with gi for further evaluation. patient understood and agrees with the plan of care. . 11/19 21:20 Order name: Basic Metabolic Panel [facility] 11/19 21:20 Order name: CBC with Diff; Complete Time: 22:37 [facility] 11/19 21:20 Order name: Hepatic Function; Complete Time: 23:07 [facility] 11/19 21:20 Order name: Lipase; Complete Time: 23:07 [facility] 11/19 21:21 Order name: Basic Metabolic Panel; Complete Time: 22:49 [facility] 11/19 23:32 Order name: Urine --Ancillary (enter results); Complete Time: 00:22 tt3 11/19 21:20 Order name: Urine Dipstick-Ancillary (obtain specimen); Complete Time: 00:19 [facility] 11/19 21:20 Order name: Urine Test (obtain specimen); Complete Time: 00:19 [facility] 11/19 23:08 Order name: CT Abd/Pelvis - Without Contrast [facility] Administered Medications: 00:18 Drug: Ondansetron 4 mg Route: PO; ea Disposition: 07:27 Co-signature as Attending Physician, Giovany Marin MD. [email or web address] Disposition: 11/20/20 00:40 Discharged to Home. Impression: Other abdominal pain. - Condition is Stable. - Discharge Instructions: Abdominal Pain, Adult. - Prescriptions for Zofran ODT 4 mg Oral tablet,disintegrating - place 1 tablet by TRANSLINGUAL route every 4-6 hours; 20 tablet. Pepcid 20 mg Oral Tablet - take 1 tablet by ORAL route every 12 hours for 10 days; 20 tablet. Reglan 10 mg Oral Tablet - take 1 tablet by ORAL route every 6 hours . take 30 minutes before meals and at bedtime; 100 tablet. - Medication Reconciliation Form, Thank You Letter, Antibiotic Education, Prescription Opioid Use, Work release form form. - Follow up: Private Physician; When: 2 - 3 days; Reason: Recheck today's complaints, Continuance of care, Re-evaluation by your physician. Signatures: Dispatcher [employer] [facility] Hayder Peace PA PA [facility] Davonte Gillis, FLIGHT RADIO OPERATOR-C FLIGHT RADIO OPERATOR-Cla1 Ciera Freeman RN RN ea Acob, Cheryl, RN RN ca1 Holmes, Maurice, MD MD 7 Corrections: (The following items were deleted from the chart) 11/19 23:56 21:21 Abdomen Pelvis W Con+CT.RAD.BRZ ordered. [facility] 11/20 00:53 00:40 11/20/2020 00:40 Discharged to Home. Impression: Other abdominal pain. Condition ea is Stable. Forms are Medication Reconciliation Form, Thank You Letter, Antibiotic Education, Prescription Opioid Use. Follow up: Private Physician; When: 2 - 3 days; Reason: Recheck today's complaints, Continuance of care, Re-evaluation by your physician. [facility]
--- NOTE | 2020-11-20 00:42 | ER ---
Nurse's Notes [facility] Name: Sydnie Villalta Age: 35 yrs Sex: Female : 1985 Arrival Date: 11/19/2020 Time: 20:06 Bed 20 Private MD: Diagnosis: Other abdominal pain Presentation: 11/19 20:17 Chief complaint: Patient states: nausea and diarrhea since Sunday night. But ca1 probably for the last 4 months, I have been having diarrhea which I think it's the new medication for depression that I am on. But lately it's been worse and diarrhea is with mucous. Report abdominal pains and cramps x 4 days. Was prescribed meds for cramping and nausea, but provides a little to no relief. Coronavirus screen: Client denies travel out of the [place] in the last 14 days. diarrhea, runny nose, vomiting. Client presents with at least one sign or symptom that may indicate coronavirus-19. Standard/surgical mask placed on the client. Provider contacted for isolation considerations. Ebola Screen: Patient negative for fever greater than or equal to 101.5 degrees Fahrenheit, and additional compatible Ebola Virus Disease symptoms Patient denies exposure to infectious person. Patient denies travel to an Ebola-affected area in the 21 days before illness onset. No symptoms or risks identified at this time. Initial Sepsis Screen: Does the patient meet any 2 criteria? No. Patient's initial sepsis screen is negative. Does the patient have a suspected source of infection? No. Patient's initial sepsis screen is negative. Risk Assessment: Do you want to hurt yourself or someone else? Patient reports no desire to harm self or others. Onset of symptoms was November 19, 2020. 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 - Social history:: Smoking status: Patient reports the use of cigarette tobacco products, smokes one pack cigarettes per day. Screenin:24 Abuse screen: Denies threats or abuse. Nutritional screening: No deficits noted. ea Tuberculosis screening: No symptoms or risk factors identified. Fall Risk None identified. Assessment: 20:30 General: Appears in no apparent distress. Behavior is calm, cooperative, appropriate ea for age. Pain: Complains of pain in abdomen. Neuro: Level of Consciousness is awake, alert, obeys commands, Oriented to person, place, time. Cardiovascular: Patient's skin is warm and dry. Respiratory: Airway is patent Respiratory effort is even, unlabored, Respiratory pattern is regular, symmetrical. Derm: Skin is pink, warm \T\ dry. 23:43 Reassessment: Patient and/or family updated on plan of care and expected duration. Pain ea level reassessed. Pt taken to CT. 11/20 00:52 Reassessment: Patient and/or family updated on plan of care and expected duration. Pain ea level reassessed. Patient is alert, oriented x 3, equal unlabored respirations, skin warm/dry/pink. Discharge instruction given to patient, verbalized the understanding of instruction. Pt left ED ambulatory tolerating well. Vital Signs: 11/19 20:17 BP 115 / 88; Pulse 103; Resp 18 S; Temp 97(TE); Pulse Ox 96% on R/A; Weight 90.72 kg ca1 (R); Height 5 ft. 1 in. (154.94 cm) (R); Pain 3/10; 11/20 00:30 BP 107 / 63; Pulse 90; Resp 18; Pulse Ox 98% ; ea 11/19 20:17 Body Mass Index 37.79 (90.72 kg, 154.94 cm) ca1 ED Course: 11/19 20:06 Patient arrived in ED. bp1 20:20 Hayder Peace PA is PHCP. jmm 20:20 Giovany Marin MD is Attending Physician. jmm 20:21 Triage completed. ca1 20:22 Arm band placed on right wrist. ca1 21:24 Ciera Freeman, ESTEBAN is Primary Nurse. ea 22:24 Patient has correct armband on for positive identification. Bed in low position. Call ea light in reach. 22:24 Missed attempt(s): 20 gauge in right forearm. Bleeding controlled, band aid applied, ea catheter tip intact. 11/20 00:11 CT Abd/Pelvis - Without Contrast In Process Unspecified. EDMS 00:51 No provider procedures requiring assistance completed. Patient did not have IV access ea during this emergency room visit. Administered Medications: 00:18 Drug: Ondansetron 4 mg Route: PO; ea Outcome: 00:40 Discharge ordered by . steve 00:51 Discharged to home ambulatory. ea 00:51 Condition: stable 00:51 Discharge instructions given to patient, Instructed on discharge instructions, follow up and referral plans. medication usage, Demonstrated understanding of instructions, follow-up care, medications, Prescriptions given X 3. 00:53 Patient left the ED. ea Signatures: Dispatcher [employer] EDMS Hayder Peace PA PA jmm Antunez, Elena, RN RN Estefania Richards RN RN [facility] No Corrections: (The following items were deleted from the chart) 11/19 22:24 22:24 Missed attempt(s): 20 gauge in right forearm. ea ea
[2020-11-20 01:36] VITALS: TEMP 97
[2020-11-20 01:37] VITALS: BP 107/63; O2SAT 98
--- NOTE | 2020-11-20 20:56 | RAD REPORT ---
EXAM DESCRIPTION: CT - Abdomen Pelvis Wo Contrast - 11/20/2020 6:42 am CLINICAL HISTORY: 35 years, Female, ABD PAIN COMPARISON: None TECHNIQUE: Multiple transaxial tomograms of the abdomen and pelvis were performed from the lung base s to the symphysis pubis 5 mm slice thickness at 5 mm interval reconstruction, without administration of IV and oral contrast. Multiplanar reformats in the sagittal and coronal plane were generated and reviewed. An individualized dose optimization technique, Automated Exposure Control, was utilized for the perfo rmed procedure. FINDINGS: The lack of IV and oral contrast limits evaluation of solid organs, subtle lesions cannot be excluded. The lung bases demonstrate to be clear. There is a small to moderate hiatal hernia. Grossly the unopacified liver, gallbladder, pancreas, spleen and adrenal glands demonstrate to be wit hin normal limits, no significant focal lesions were identified. The kidneys demonstrate grossly unremarkable. No nephrolithiasis and/or hydronephrosis were identifie d. Grossly the unopacified stomach, small bowel and large bowel demonstrate to be within normal limits. There is no evidence for bowel dilatation and/or free air. The was not visualized although no signifi cant inflammatory changes are seen within the right lower quadrant. The urinary bladder was decompressed with superior wall thickening. Noted is the presence of tract an terior pelvic tubular structure within the suprapubic area perhaps suggesting the tract of a suprapub ic catheter no definitive balloon is identified within the urinary bladder. The uterus demonstrate to be within normal limits. No adnexal masses are identified. The aorta demonstrate to be within normal limits. There is no retroperitoneal lymphadenopathy. There is no evidence for ascites. The the b one windows demonstrate no significant skeletal lesions. There is diastases of the symphysis pubis. IMPRESSION: Noted is the presence of a tract of a anterior pelvic tubular structure within the supra pubic area perhaps suggesting the tract of a suprapubic catheter no definitive balloon is identified within the urinary bladder. Small to moderate hiatal hernia. Diastases of the symphysis pubis. Electronically signed by: Chad Bright MD 11/20/2020 12:13 AM CDT Due to temporary technical issues with the PACS/Fluency reporting system, reports are being signed by the in house radiologists without review as a courtesy to insure prompt reporting. The interpreting radiologist is fully responsible for the content of the report.
[2020-11-24 16:14] LABS: Urine Blood NEGATIVE (Negative); Urine Glucose NEGATIVE (Negative); Urine Protein NEGATIVE (Negative); Urine Specific Gravity >1.030 (1.005-1.030)
== END 2020-11-20 00:53 | disposition home or self-care (01) ==
LOC: ER 20:03
DX: R10.9 Unspecified abdominal pain (principal); F17.210 Nicotine dependence, cigarettes, uncomplicated; F41.9 Anxiety disorder, unspecified; F32.9 Major depressive disorder, single episode, unspecified; R11.2 Nausea with vomiting, unspecified; R19.7 Diarrhea, unspecified
CPT/HCPCS: 36415; 74176; 80048; 80076; 81003; 81025; 83690; 85025; 99283

== ENCOUNTER 2024-07-02 09:40 | Emergency (ER) | payer SELFPAY ==
[2024-07-02] MEDS ORDERED: NA CHLORIDE 0.9% 1,000 ML ONE (10:20)
[2024-07-02 10:26] LABS: Specific Gravity 1.005 (1.005-1.030)
[2024-07-02 10:28] LABS: Specific Gravity 1.005 (1.005-1.030); Urine Bacteria >50 /HPF (<20); Urine Bilirubin NEGATIVE (Negative); Urine Blood Negative (Negative); Urine Clarity Extremely Turbid (Clear); Urine Color Light-Yellow (Yellow); Urine Crystals Unidentified Few /HPF (None Seen); Urine Culture Reflex Order NOT NEEDED; Urine Glucose NEGATIVE (Negative); Urine Ketones NEGATIVE (Negative); Urine Microscopic Reflex YN ORDER UMIC; Urine Mucus 2+ /HPF (None Seen); Urine Nitrite 2+ (Negative); Urine Protein NEGATIVE (Negative); Urine RBC <5 /HPF (None Seen); Urine Urobilinogen Normal (Normal); Urine WBC Clump Rare /HPF (None Seen); Urine Yeast (Budding) Few /HPF (None Seen)
[2024-07-02 11:29] LABS: Absolute Basophils 0.1 K/uL (0-0.5); Absolute Eosinophils 0.2 K/uL (0-0.5); Absolute Lymphocytes (CBC) 1.7 K/uL (0.7-4.9); Absolute Monocytes 0.7 K/uL (0.1-1.3); Absolute Neutrophil 4.1 K/uL (1.8-8.0); Basophils % 0.9 % (0-1.3); Eosinophils % 2.5 % (0-4.4); Hematocrit 45.3 % (36.0-45.0); Hemoglobin 15.2 g/dL (12.0-15.0); Lymphocytes % 25.2 % (15.3-44.8); MCH 31.2 pg (27.0-35.0); MCHC 33.6 g/dL (32.0-36.0); MPV 9.1 fL (7.6-11.3); Neutrophils % 61.4 % (41.7-73.7); Platelets 287 thou/uL (152-406); RBC Red Blood Cell Count 4.87 M/uL (3.86-4.86); Red Cell Distribution Width 14.9 % (12.1-15.2)
[2024-07-02 11:47] LABS: ALT/SGPT 26 U/L (13-56); AST/SGOT 16 U/L (15-37); Albumin 3.5 g/dL (3.4-5.0); Albumin/Globulin Ratio 0.8 (1.1-1.8); Alkaline Phosphatase 72 U/L (45-117); Anion Gap 8.2 mEq/L (5.0-15.0); BUN Blood Urea Nitrogen 8 mg/dL (7-18); Bicarbonate 23 mEq/L (21-32); Bilirubin Total 0.6 mg/dL (0.2-1.0); Globulin 4.3 g/dL (2.3-3.5); Glomerular Filtration Rate 112 ml/min (=/>90); Glucose Level 96 mg/dL (74-106); Lipase 70 U/L (13-75); Potassium 4.2 mEq/L (3.5-5.1); Protein, Total 7.8 g/dL (6.4-8.2); Sodium Level 139 mEq/L (136-145); Troponin High Sensitivity < 3.0 pg/mL (<58.9)
--- NOTE | 2024-07-02 11:53 | ER ---
Nurse's Notes [facility] Name: Sydnie Villalta Age: 39 yrs Sex: Female : 1985 Arrival Date: 07/02/2024 Time: 09:40 Bed 7 Private MD: Diagnosis: Dizziness and giddiness;Weakness;UTI/ Urinary tract infection, site not specified Presentation: 07/02 09:55 Chief complaint: Patient states: Weak, tired, lightheaded, near syncope feeling for 3-4 ll1 days. No known fever. Coronavirus screen: Client denies travel out of the [place] in the last 14 days. fatigue, headache, muscle pain, Client presents with at least one sign or symptom that may indicate coronavirus-19. Standard/surgical mask placed on the client. Ebola Screen: Patient denies travel to an Ebola-affected area in the 21 days before illness onset. Initial Sepsis Screen: Does the patient meet any 2 criteria? No. Patient's initial sepsis screen is negative. Does the patient have a suspected source of infection? No. Patient's initial sepsis screen is negative. Risk Assessment: Do you want to hurt yourself or someone else? Patient reports no desire to harm self or others. Onset of symptoms was June 29, 2024. 09:55 Method Of Arrival: Ambulatory ll1 09:55 Acuity: SUZY 3 ll1 Triage Assessment: 09:55 General: Appears uncomfortable, Behavior is calm, cooperative, appropriate for age, ll1 Reports feeling ill for fatigue for. Neuro: Reports dizziness, headache weakness. 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 - Infectious Disease History:: Denies. - Social history:: Smoking status: Patient reports the use of cigarette tobacco products, smokes one pack cigarettes per day. Reported history of juuling and/or vaping. - Family history:: not pertinent. Screenin:12 [facility] ED Fall Risk Assessment (Adult) History of falling in the last 3 months, ap3 including since admission No falls in past 3 months (0 pts) Confusion or Disorientation No (0 pts) Intoxicated or Sedated No (0 pts) Impaired Gait No (0 pts) Mobility Assist Device Used No (0 pt) Altered Elimination No (0 pt) Score/Fall Risk Level 0 - 2 = Low Risk Oriented to surroundings, Maintained a safe environment, Educated pt \\T\\ family on fall prevention, incl call for assistance when getting out of bed, Assessed \\T\\ reinforced patient's understanding of fall precautions, Hourly rounding (assess needs \\T\\ fall precautionary measures) done, Used ambulatory aids as needed (educated on \\T\\ assisted with), Used gait belt as appropriate. Abuse screen: Denies threats or abuse. Nutritional screening: No deficits noted. Tuberculosis screening: No symptoms or risk factors identified. Assessment: 10:10 General: Appears in no apparent distress. Behavior is calm, cooperative, appropriate ap3 for age. Pain: Denies pain. Neuro: Level of Consciousness is awake, alert, obeys commands, Oriented to person, place, time, situation, Appropriate for age Gait is steady, Speech is normal, Facial symmetry appears normal, Reports feeling weak and like she might "pass out". patient reports light headedness. Cardiovascular: Denies palpitations. Respiratory: Airway is patent Respiratory effort is even, unlabored, Respiratory pattern is regular, symmetrical. GI: No signs and/or symptoms were reported involving the gastrointestinal system. 12:14 Reassessment: Patient appears in no apparent distress at this time. No changes from cm10 previously documented assessment. Patient and/or family updated on plan of care and expected duration. Pain level reassessed. Patient is alert, oriented x 3, equal unlabored respirations, skin warm/dry/pink. Vital Signs: 09:55 BP 141 / 91; Pulse 92; Resp 17; Temp 97.3; Pulse Ox 98% ; Pain 3/10; ll1 11:15 BP 137 / 78 Supine; Pulse 71; Pulse Ox 96% ; ap3 11:20 BP 127 / 87 Sitting; Pulse 76; ap3 11:25 BP 127 / 89 Standing; Pulse 76; ap3 11:45 BP 120 / 70; Pulse 79; Resp 20; Pulse Ox 99% on R/A; cm10 09:55 Pain Scale: Adult ll1 ED Course: 09:43 Patient arrived in ED. ra3 09:44 Garett Pena MD is Attending Physician. shaye 09:44 Arm band placed on Patient placed in an exam room, on a stretcher. bp 09:56 Triage completed. ll1 09:59 Alicia Dc, RN is Primary Nurse. ap3 10:10 EKG done, by ED staff, reviewed by Garett Pena MD. ap3 10:12 Patient has correct armband on for positive identification. Bed in low position. Call ap3 light in reach. Side rails up X 1. Provided Education on: call light education/fall risk education. Client placed on continuous cardiac and pulse oximetry monitoring. NIBP monitoring applied. clip on sunglasses inspector on. Pulse ox on. NIBP on. Door closed. Noise minimized. Warm blanket given. 10:45 Missed attempt(s): 22 gauge in right antecubital area. ap3 10:45 Missed attempt(s): 24 gauge in left wrist. ap3 12:14 No provider procedures requiring assistance completed. IV discontinued, intact, cm10 bleeding controlled, No redness/swelling at site. Pressure dressing applied. Administered Medications: 11:27 Drug: NS 0.9% IV 1000 ml IV at 1000 ml once; to be given as a bolus over 60 minutes ap3 Route: IV; Rate: 1000 ml; Site: left forearm; 12:13 Follow up: Response: No adverse reaction; IV Status: Completed infusion; IV Intake: cm10 1000ml 12:09 Drug: Rocephin IV 1 grams IV at per protocol once; Given slow IV push per pharmacy cm10 instructions Route: IV; Rate: per protocol; Site: left forearm; 12:13 Follow up: Response: No adverse reaction; IV Status: Completed infusion; IV Intake: [id number] 12:09 Drug: Ciprofloxacin PO 500 mg PO once Route: PO; cm10 12:13 Follow up: Response: Medication administered at discharge. cm10 12:09 Not Given (Patient Refused): [id number] mg PO once cm10 Medication: 10:12 VIS not applicable for this client. ap3 Intake: 12:13 IV: 1000ml; Total: 1000ml. cm10 12:13 IV: 10ml; Total: 1010ml. cm10 Outcome: 11:52 Discharge ordered by . shaye 12:14 Discharged to home ambulatory, cm10 12:14 Condition: good 12:14 Discharge instructions given to patient, Instructed on discharge instructions, follow up and referral plans. medication usage, Demonstrated understanding of instructions, follow-up care, medications, Prescriptions given X 2, 12:18 Patient left the ED. cm10 Signatures: Garett Pena MD MD cha Peltier, Brian RN RN bp Alicia Dc RN RN ap3 Sae Mayo RN RN ll1 Gladis Bronson RN RN cm10 Zenaida Bustamante ra3 Corrections: (The following items were deleted from the chart) 11:29 11:20 BP 123 / 88; Pulse 98bpm; Resp 17bpm; Pulse Ox 96% RA; ap3 ap3
--- NOTE | 2024-07-02 11:53 | EDPHYS ---
Physician Documentation [facility] Name: Sydnie Villalta Age: 39 yrs Sex: Female : 1985 Arrival Date: 07/02/2024 Time: 09:40 Bed 7 Private MD: ED Physician Garett Pena HPI: 07/02 11:48 This 39 yrs old Female presents to ER via Ambulatory with complaints of Lightheaded. shaye 11:49 weak, dizzy. Onset: The symptoms/episode began/occurred 2 day(s) ago. Severity of shaye symptoms: At their worst the symptoms were mild in the emergency department the symptoms are unchanged. The patient has experienced similar episodes in the past, several times. 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 - Infectious Disease History:: Denies. - Social history:: Smoking status: Patient reports the use of cigarette tobacco products, smokes one pack cigarettes per day. Reported history of juuling and/or vaping. - Family history:: not pertinent. ROS: 11:49 Constitutional: Negative for fever, chills, and weight loss, Eyes: Negative for injury, shaye pain, redness, and discharge, ENT: Negative for injury, pain, and discharge, Neck: Negative for injury, pain, and swelling, Cardiovascular: Negative for chest pain, palpitations, and edema, Respiratory: Negative for shortness of breath, cough, wheezing, and pleuritic chest pain, Abdomen/GI: Negative for abdominal pain, nausea, vomiting, diarrhea, and constipation, Back: Negative for injury and pain, : Negative for injury, bleeding, discharge, and swelling, MS/Extremity: Negative for injury and deformity, Skin: Negative for injury, rash, and discoloration, Psych: Negative for depression, anxiety, suicide ideation, homicidal ideation, and hallucinations, Allergy/Immunology: Negative for hives, rash, and allergies, Endocrine: Negative for neck swelling, polydipsia, polyuria, polyphagia, and marked weight changes, Hematologic/Lymphatic: Negative for swollen nodes, abnormal bleeding, and unusual bruising, 11:49 Neuro: Positive for dizziness, weakness, Exam: 11:49 Constitutional: This is a well developed, well nourished patient who is awake, alert, shaye and in no acute distress. Head/Face: Normocephalic, atraumatic. Eyes: Pupils equal round and reactive to light, extra-ocular motions intact. Lids and lashes normal. Conjunctiva and sclera are non-icteric and not injected. Cornea within normal limits. Periorbital areas with no swelling, redness, or edema. ENT: Nares patent. No nasal discharge, no septal abnormalities noted. Tympanic membranes are normal and external auditory canals are clear. Oropharynx with no redness, swelling, or masses, exudates, or evidence of obstruction, uvula midline. Mucous membranes moist. Neck: Trachea midline, no thyromegaly or masses palpated, and no cervical lymphadenopathy. Supple, full range of motion without nuchal rigidity, or vertebral point tenderness. No Meningismus. Chest/axilla: Normal chest wall appearance and motion. Nontender with no deformity. No lesions are appreciated. Cardiovascular: Regular rate and rhythm with a normal S1 and S2. No gallops, murmurs, or rubs. Normal PMI, no JVD. No pulse deficits. Respiratory: Lungs have equal breath sounds bilaterally, clear to auscultation and percussion. No rales, rhonchi or wheezes noted. No increased work of breathing, no retractions or nasal flaring. Abdomen/GI: Soft, non-tender, with normal bowel sounds. No distension or tympany. No guarding or rebound. No evidence of tenderness throughout. Back: No spinal tenderness. No costovertebral tenderness. Full range of motion. Skin: Warm, dry with normal turgor. Normal color with no rashes, no lesions, and no evidence of cellulitis. MS/ Extremity: Pulses equal, no cyanosis. Neurovascular intact. Full, normal range of motion. Neuro: Awake and alert, GCS 15, oriented to person, place, time, and situation. Cranial nerves II-XII grossly intact. Motor strength 5/5 in all extremities. Sensory grossly intact. Cerebellar exam normal. Normal gait. Psych: Awake, alert, with orientation to person, place and time. Behavior, mood, and affect are within normal limits. 11:49 ECG was reviewed by the Attending Physician. 11:49 Musculoskeletal/extremity: DVT Exam: No signs of deep vein thrombosis. no pain, no swelling, no tenderness, negative Homans' sign noted on exam, no appreciated bluish discoloration, no erythema, no increased warmth, Vital Signs: 09:55 BP 141 / 91; Pulse 92; Resp 17; Temp 97.3; Pulse Ox 98% ; Pain 3/10; ll1 11:15 BP 137 / 78 Supine; Pulse 71; Pulse Ox 96% ; ap3 11:20 BP 127 / 87 Sitting; Pulse 76; ap3 11:25 BP 127 / 89 Standing; Pulse 76; ap3 11:45 BP 120 / 70; Pulse 79; Resp 20; Pulse Ox 99% on R/A; cm10 09:55 Pain Scale: Adult ll1 MDM: 09:45 Medical Screening Exam initiated shaye 11:50 Data reviewed: vital signs, nurses notes, lab test result(s), EKG. [facility] 07/02 09:58 Order name: CBC with Diff; Complete Time: 11:43 [facility] 07/02 09:58 Order name: Comprehensive Metabolic Panel; Complete Time: 11:48 [facility] 07/02 09:58 Order name: Urinalysis w/ reflexes; Complete Time: 11:28 [facility] 07/02 09:58 Order name: PREGU; Complete Time: 11:28 [facility] 07/02 09:58 Order name: Troponin High Sensitivity; Complete Time: 11:48 [facility] 07/02 09:58 Order name: Lipase; Complete Time: 11:48 [facility] 07/02 09:58 Order name: EKG; Complete Time: 09:58 [facility] 07/02 09:58 Order name: EKG - Nurse/Tech; Complete Time: 10:12 [facility] 07/02 09:58 Order name: Orthostatics; Complete Time: 11:27 [facility] EC:49 Rate is 91 beats/min. Rhythm is regular. QRS [place] is Normal. [place] interval is normal. QRS shaye interval is normal. QT interval is normal. No Q waves. T waves are Normal. No ST changes noted. Clinical impression: Normal ECG and No evidence of ischemia. Interpreted by me. Reviewed by me. Administered Medications: : Drug: NS 0.9% IV 1000 ml IV at 1000 ml once; to be given as a bolus over 60 minutes ap3 Route: IV; Rate: 1000 ml; Site: left forearm; 12:13 Follow up: Response: No adverse reaction; IV Status: Completed infusion; IV Intake: cm10 1000ml 12:09 Drug: Rocephin IV 1 grams IV at per protocol once; Given slow IV push per pharmacy cm10 instructions Route: IV; Rate: per protocol; Site: left forearm; 12:13 Follow up: Response: No adverse reaction; IV Status: Completed infusion; IV Intake: [id number] 12:09 Drug: Ciprofloxacin PO 500 mg PO once Route: PO; cm10 12:13 Follow up: Response: Medication administered at discharge. cm10 12:09 Not Given (Patient Refused): [id number] mg PO once cm10 Disposition Summary: 07/02/24 11:52 Discharge Ordered Notes: Location: Home shaye Problem: new shaye Symptoms: have improved shaye Condition: Stable shaye Diagnosis - Dizziness and giddiness shaye - Weakness shaye - UTI/ Urinary tract infection, site not specified shaye Followup: shaye - With: Private Physician - When: 2 - 3 days - Reason: Recheck today's complaints, Continuance of care, Re-evaluation by your physician Discharge Instructions: - Discharge Summary Sheet shaye - Dizziness shaye - Dysuria shaye - Urinary Tract Infection, Adult shaye - Weakness shaye - Fatigue shaye - Urinary Tract Infection, Adult, [id number] shaye - Weakness, [id number] [facility] Forms: - Medication Reconciliation Form shaye - Antibiotic Education shaye - Prescription Opioid Use shaye - Patient Portal Instructions [facility] - Leadership Thank You Letter [facility] Prescriptions: - Cipro 250 mg Oral tablet - take 1 tablet ORAL route every 12 hours; 14 tablet; Refills: 0, Product [facility] Selection Permitted - Meclizine 25 mg Oral Tablet - take 1 tablet ORAL route every 8 hours As needed; 30 tablet; Refills: 0, [facility] Product Selection Permitted Signatures: Dispatcher [employer] Garett Andre MD MD cha Peltier, Brian, RN RN Alicia Navarro RN RN ap3 Sae Mayo RN RN ll1 Gladis Bronson RN RN cm10
[2024-07-02] MEDS ORDERED: CEFTRIAXONE 1000 MG/VIAL ONE (11:57)
[2024-07-02] MEDS ORDERED: MECLIZINE HCL 12.5 MG TAB ONE (11:57)
[2024-07-02] MEDS ORDERED: CIPROFLOXACIN HCL 500 MG TAB ONE (11:58)
[2024-07-02 13:54] VITALS: TEMP 97.3
[2024-07-02 13:58] VITALS: BP 120/70; O2SAT 99
--- NOTE | 2024-07-04 09:49 | EKG ---
Test Date: 2024-07-02 Test Time: 10:08:13 Director Of [employer] Sales: ALP MEASUREMENT RESULTS: Intervals: Rate: 91 AR: 122 QRSD: 76 QT: 364 QTc: 447 [place]: P: 61 AR: 122 QRS: 79 T: 49 INTERPRETIVE STATEMENTS: Normal sinus rhythm Normal ECG Compared to ECG 10/30/2020 02:40:31 Sinus arrhythmia no longer present Electronically Signed On 07-04-24 09:47:26 [employer] by Drake Chowdhury
== END 2024-07-02 12:18 | disposition home or self-care (01) ==
LOC: ER 09:40
DX: N39.0 Urinary tract infection, site not specified (principal); R53.1 Weakness
CPT/HCPCS: 36415; 80053; 81001; 81025; 83690; 84484; 85025; 93005; 96361; 96374; 99285; J0696; J7030; J8597